=== PATIENT | male | born 1965 | race Caucasian/White ===

== ENCOUNTER 2019-12-13 10:44 | Outpatient (CLI) | payer MEDICAID, SELFPAY ==
[2019-12-13 11:16] LABS: Basophils # 0.1 10^3/uL (0.0-0.1); Basophils % 0.8 %; Eosinophils # 0.2 10^3/uL (0.0-0.8); Eosinophils % 1.5 %; Hematocrit 42.7 % (42.0-52.0); Hemoglobin 14.3 g/dL (11.7-16.6); Lymphocytes % 19.9 %; Mean Corpuscular HGB Conc 33.5 g/dL (30.0-36.0); Mean Corpuscular Volume 89.5 fL (80-94); Mean Platelet Volume 10.7 fL (7.4-10.4); Monocytes # 0.9 10^3/uL (0.2-0.9); Neutrophils # 6.7 10^3/uL (1.8-7.7); Neutrophils % 68.3 %; Nucleated Red Blood Cells % 0 %; Platelet Count 367 10^3/cmm (130-400); Red Blood Count 4.77 10^6/uL (4.1-5.3); Red Cell Distribution Width 12.6 % (12.1-15.1); White Blood Count 9.9 10^3/uL (4.0-10.0)
[2019-12-13 11:29] LABS: Albumin Level 4.2 g/dL (3.5-5.2); Blood Urea Nitrogen 25 mg/dL (6-20); Calcium 10.2 mg/dL (8.5-10.5); Carbon Dioxide 25 mmol/L (22-29); Chloride 95 mmol/L (98-107); Glucose 116 mg/dL (65-115); Sodium 132 mmol/L (136-145)
[2019-12-13 11:44] LABS: Urine Creatinine 130 mg/dL (39-259); Urine Protein Random 13 mg/dL
[2019-12-13 13:03] LABS: Calcium 10.4 mg/dL (8.5-10.5); Parathyroid Hormone 91.9 pg/mL (15-65)
== END 2019-12-13 10:45 | disposition home or self-care (01) ==
LOC: LAB 10:52
PROVIDERS: Family Provider Internal Medicine; PCP Physician Assistant; Visit Provider Internal Medicine Nephrology
DX: N18.4 Chronic kidney disease, stage 4 (severe) (principal)
CPT/HCPCS: 36415; 80069; 82310; 82570; 83970; 84156; 85025

== ENCOUNTER 2020-12-14 02:08 | Inpatient (IN) | payer MEDICARE, MEDICAID, SELFPAY ==
[2020-12-14] VITALS (20 sets, daily range): BP systolic 98–153; BP diastolic 61–104; PULSE 68–105; RESP 13–35; TEMP 32.6–37.2; O2SAT 94–100; BMI 23.5
--- NOTE | 2020-12-14 02:27 | XR_ITS ---
WS: [id number] PORTABLE CHEST HISTORY: weakness COMPARISON: 04/30/2020 Hyperexpanded lungs. Mild blunting of the LEFT costophrenic angle with pleural thickening. Similar to prior studies. Benign granuloma in the LEFT lower lung. No pleural effusion or pneumothorax. Cardiac size: Normal. Mediastinum/Aorta: Normal mediastinum. No osseous abnormality seen. XR/XR chest 1V portable [id number] IMPRESSION: 1. No pneumonia. 2. Stable blunting of the LEFT costophrenic angle.
--- NOTE | 2020-12-14 02:29 | ECG_ITS ---
[facility] Test Date: 2020-12-14 Pat Name: Srinivasan Arambula Department: Room: Gender: Male Customer Sales Specialist: : 1965 Requested By: Rosendo Olsen Order Number: [id number] Ethan MD: Jim Walter M.D. Measurements Intervals [place] Rate: 69 P: 54 UT: 153 QRS: 20 QRSD: 122 T: 45 QT: 488 QTc: 526 Interpretive Statements SINUS RHYTHM POSSIBLE LEFT ATRIAL ENLARGEMENT [-0.1mV P WAVE IN V1/V2] MODERATE INTRAVENTRICULAR CONDUCTION DELAY [110+ ms QRS DURATION] PROLONGED QT INTERVAL CRITICAL TEST RESULT Compared to ECG 01/28/2018 08:32:10 Intraventricular conduction delay now present Prolonged QT interval now present Left ventricular hypertrophy no longer present ST (T wave) deviation no longer present Possible ischemia no longer present Electronically Signed On 12-14-2020 16:06:52 IN SERVICE COORDINATOR by Jim Walter M.D. [email or web address] [email or web address] hospitalTeraFold Bi[employer] [email or web address]/OM/[id number]
[2020-12-14] MEDS: ondansetron 2 mg/ML SDV 2 mL 4 MG IVP (02:32)
[2020-12-14] MEDS: sodium chloride 0.9% 1,000 ML 999 ML IV (02:36)
[2020-12-14 03:09] LABS: Basophils # 0.1 10^3/uL (0.0-0.1); Basophils % 0.6 %; Eosinophils % 0.3 %; Hematocrit 43.9 % (42.0-52.0); Lymphocytes # 2.1 10^3/uL (0.8-4.8); Lymphocytes % 14.6 %; Mean Corpuscular HGB Conc 34.2 g/dL (30.0-36.0); Mean Corpuscular Hemoglobin 30.4 pg (28.0-34.0); Mean Platelet Volume 11.3 fL (7.4-10.4); Monocytes # 0.2 10^3/uL (0.2-0.9); Monocytes % 1.5 %; Neutrophils # 11.84 10^3/uL (1.8-7.7); Neutrophils % 82.4 %; Nucleated Red Blood Cells % 0 %; Platelet Count 363 10^3/cmm (130-400); Red Blood Count 4.93 10^6/uL (4.1-5.3); Red Cell Distribution Width 13.1 % (12.1-15.1); White Blood Count 14.4 10^3/uL (4.0-10.0)
[2020-12-14 03:29] LABS: Alanine Aminotransferase 16 U/L (0-41); Alcohol Level 81 mg/dL (0-10); Alkaline Phosphatase 114 IU/L (40-130); Anion Gap 29.8 (5-19); Aspartate Amino Transferase 20 U/L (0-40); Blood Urea Nitrogen 34 mg/dL (6-20); Carbon Dioxide 14 mmol/L (22-29); Chloride 92 mmol/L (98-107); Globulin 2.9 g/dL (1.3-4.6); Glomerular Filtration Rate 39.7 mL/min (90-130); Glucose 71 mg/dL (65-115); Lipase 55 U/L (13-60); Osmolality Calculated 282 mOsm/kg (285-295); Sodium 133 mmol/L (136-145); Total Bilirubin 0.3 mg/dL (0.15-1.2); Total Protein 6.9 g/dL (6.6-8.7)
[2020-12-14 03:30] LABS: Troponin(5th) Baseline 21 ng/L (0-15)
[2020-12-14 03:33] LABS: Potassium 2.8 mmol/L (3.5-5.1)
[2020-12-14 03:34] LABS: Lactate (Lactic Acid level) 7.1 mmol/L (0.5-2.2)
--- NOTE | 2020-12-14 03:36 | ED_ITS ---
HPI - General Adult General: Chief complaint: Nausea/Vomiting/Diarrhea Stated complaint: nausea Time Seen by Provider: 12/14/20 02:13 History of Present Illness: HPI narrative: The patient is a 55-year-old male with past medical history chronic kidney disease who comes to the ER via ambulance complaining of nausea and weakness. He says he does not know what to do anymore and his core temperature is 91 degrees. He also admits to drinking alcohol. He says he was not outside but he uses electricity for his seat so it is most likely a space heater. He is not very specific with his complaints or forthcoming with history. He says he has chronic kidney disease and may be high blood pressure. He is with a family member who says she does not know much about his medical problems either and she does not live with him Associated symptoms: Deny chest pain, confusion, dyspnea, headache(s), rash or palpitations Review of Systems General: Reports: 10 or more systems reviewed and unremarkable except in HPI and below Const: Denies: fatigue Eyes: Denies: change in vision, blurry vision or eye redness ENMT: Denies: throat pain, swelling of lips/tongue, ear or mastoid pain or nasal congestion Card: Denies: chest pain, palpitations, irregular heart rhythm, edema, dyspnea on exertion or orthopnea Resp: Denies: dyspnea, productive cough or non-productive cough GI: Denies: abdominal pain, diarrhea or GI cramping : Denies: flank pain, urinary frequency or urinary urgency Musc: Denies: neck pain, back pain, extremity pain, joint pain, joint redness, limited range of motion or muscle weakness Skin/Breast: Denies: rash, pruritus, erythema, skin pain or skin tenderness Neuro: Denies: headache(s), numbness in extremities, weakness in extremities, sensory changes, difficulty walking, dizziness, confusion or Slurred speech present Psych: Denies: anxiety or depression Endo: Denies: polyuria All/Imm: Denies: urticaria, throat swelling or tongue swelling PFSH ED PFSH: Medical History (Updated 12/14/20 @ 06:17 by Rosendo Olsen MD) Chronic kidney disease Coronary artery disease HTN (hypertension) LVH (left ventricular hypertrophy) Surgical History (Updated 09/27/20 @ 16:04 by Esha Shane MD) Hx of hand surgery Hx of pelvic surgery Family History Brother Hypertension Mother Hypertension Social History Smoking and tobacco status: current every day smoker Alcohol intake: current Alcohol intake frequency: other Physical Exam Const: COMMON NORMALS: no acute distress, average body habitus, patient oriented x3, no limitations, healthy appearing, alert and well nourished GENERAL APPEARANCE: cooperative, comfortable, well developed and disheveled ORIENTATION/CONSCIOUSNESS: Yes awake, Yes oriented to person, Yes oriented to place and Yes oriented to time OTHER: Skin cool to touch HENMT: COMMON NORMALS: normocephalic, external ears normal and Normal external nose present HEAD & SCALP: normal to inspection and normocephalic NOSE: Normal external nose present EXTERNAL EAR: Yes external ears normal MOUTH: Normal oral and palatal mucosa present THROAT: posterior oropharynx normal Eye: COMMON NORMALS: Equal, round and reactive pupils present and EOMs intact bilaterally GENERAL EYE: appearance normal, both eyes and all related structures PUPIL: Yes Equal, round and reactive pupils present Neck/C-Spine: COMMON NORMALS: full ROM, no lymphadenopathy, no meningeal signs and no JVD GENERAL: Yes normal visual inspection Lymph: LYMPHATIC: no lymphadenopathy noted Chest: COMMONS NORMALS: normal inspection of the chest and normal palpation of entire chest wall Resp: COMMON NORMALS: normal respiratory effort, No retractions, No use of accessory muscles, clear to auscultation bilaterally and percussion normal EFFORT & INSPECTION: Yes able to speak in complete sentences AUSCULTATION: clear to auscultation bilaterally PERCUSSION: percussion normal Cardio: COMMON NORMALS: no JVD, regular rate, regular rhythm, S1 normal heart sound present, S2 normal heart sound present and Peripheral pulses 2+ throughout RATE: regular rate RHYTHM: regular rhythm HEART SOUNDS: S1 normal heart sound present and S2 normal heart sound present PERIPHERAL PULSES: Peripheral pulses 2+ throughout GI: COMMON NORMALS: Normal to inspection, nondistended, normoactive bowel sounds present, Soft to palpation, non-tender and no masses INSPECTION: Yes normal to inspection PALPATION: Yes Soft to palpation : COMMON NORMALS: Yes no CVA tenderness BLADDER/KIDNEY EXAM: Yes no CVA tenderness Back/Pelvis: COMMON NORMALS: no CVA tenderness, thoracic and lumbar spine normal to inspection, no thoracic nor lumbar tenderness and thoraco-lumbar ROM normal Extremity: COMMON NORMALS: normal to inspection, full ROM, capillary refill normal, no joint enlargement and no pedal edema GENERAL: Yes normal exam except as noted Neuro: COMMON NORMALS: patient oriented x3, CN's II-XII intact bilaterally, moves all extremities, no focal motor deficits, no sensory deficits noted and gait normal SENSORIUM/ORIENTATION: Yes alert, Yes oriented to person, Yes oriented to place and Yes oriented to time MENINGEAL SIGNS: Yes no meningeal signs Psych: COMMON NORMALS: mental status grossly normal, Normal thought process present, cooperative, normal affect and speech normal ATTITUDE: Yes calm SPEECH: Yes normal speech THOUGHT PROCESS: Normal thought process present Skin: COMMON NORMALS: no rashes or lesions noted GENERAL SKIN EXAM: no r ashes or lesions noted Course Vital Signs: Vital signs: Vital Signs Temperature 93.1 F L 12/14/20 04:39 Pulse Rate 85 12/14/20 04:39 Respiratory Rate 20 H 12/14/20 04:39 Blood Pressure 118/66 12/14/20 04:39 Pulse Oximetry 95 12/14/20 04:39 MDM - General Adult MDM Narrative: Medical decision making narrative: The patient is a 55-year-old male with kidney disease who comes to the ER with a core body temperature of 90 degrees. Also he has lactic acid of 7.1 and potassium 2.8. He was placed on the bear hugger and given warm IV fluids with some improvement of these. Admit to to the ICU Lab Data: Labs: Lab Results 12/14/20 12/14/20 12/14/20 Range/Units 02:57 02:57 02:57 WBC 14.4 H (4.0-10.0) 10^3/ uL RBC 4.93 (4.1-5.3) 10^6/u L Hgb 15.0 (11.7-16.6) g/dL Hct 43.9 (42.0-52.0) % MCV 89.0 (80-94) fL MCH 30.4 (28.0-34.0) pg MCHC 34.2 (30.0-36.0) g/dL RDW 13.1 (12.1-15.1) % Plt Count 363 (130-400) 10^3/c mm MPV 11.3 H (7.4-10.4) fL Neut % (Auto) 82.4 % Lymph % (Auto) 14.6 % [place] % (Auto) 1.5 % Eos % (Auto) 0.3 % Baso % (Auto) 0.6 % Neut # (Auto) 11.84 H (1.8-7.7) 10^3/u L Lymph # (Auto) 2.1 (0.8-4.8) 10^3/u L [place] # (Auto) 0.2 (0.2-0.9) 10^3/u L Eos # (Auto) 0.0 (0.0-0.8) 10^3/u L Baso # (Auto) 0.1 (0.0-0.1) 10^3/u L Nucleated RBC % (a uto) 0 % Nucleated RBCs # 0.0 /100WBC Sodium 133 L (136-145) mmol/L Potassium 2.8 L* (3.5-5.1) mmol/L Chloride 92 L (98-107) mmol/L Carbon Dioxide 14 L (22-29) mmol/L Anion Gap 29.8 H (5-19) BUN 34 H (6-20) mg/dL Creatinine 1.8 H (0.7-1.2) mg/dL GFR Calculation 39.7 L (90-130) mL/min Glucose 71 (65-115) mg/dL Calculated Osmolal ity 282 L (285-295) mOsm/k g Lactate 7.1 H* (0.5-2.2) mmol/L Calcium 9.0 (8.5-10.5) mg/dL Total Bilirubin 0.3 (0.15-1.2) mg/dL AST 20 (0-40) U/L ALT 16 (0-41) U/L Alkaline Phosphata se 114 (40-130) IU/L Troponin T Baselin e (0-15) ng/L Troponin T 120 Min [place] (0-15) ng/L Delta Troponin T (0-10) ABS# Total Protein 6.9 (6.6-8.7) g/dL Albumin 4.0 (3.5-5.2) g/dL Globulin 2.9 (1.3-4.6) g/dL Lipase 55 (13-60) U/L Ethyl Alcohol 81 H (0-10) mg/dL 12/14/20 12/14/20 12/14/20 Range/Units 02:57 05:00 05:00 WBC (4.0-10.0) 10^3/ uL RBC (4.1-5.3) 10^6/u L Hgb (11.7-16.6) g/dL Hct (42.0-52.0) % MCV (80-94) fL MCH (28.0-34.0) pg MCHC (30.0-36.0) g/dL RDW (12.1-15.1) % Plt Count (130-400) 10^3/c mm MPV (7.4-10.4) fL Neut % (Auto) % Lymph % (Auto) % [place] % (Auto) % Eos % (Auto) % Baso % (Auto) % Neut # (Auto) (1.8-7.7) 10^3/u L Lymph # (Auto) (0.8-4.8) 10^3/u L [place] # (Auto) (0.2-0.9) 10^3/u L Eos # (Auto) (0.0-0.8) 10^3/u L Baso # (Auto) (0.0-0.1) 10^3/u L Nucleated RBC % (a uto) % Nucleated RBCs # /100WBC Sodium (136-145) mmol/L Potassium (3.5-5.1) mmol/L Chloride (98-107) mmol/L Carbon Dioxide (22-29) mmol/L Anion Gap (5-19) BUN (6-20) mg/dL Creatinine (0.7-1.2) mg/dL GFR Calculation (90-130) mL/min Glucose (65-115) mg/dL Calculated Osmolal ity (285-295) mOsm/k g Lactate 5.9 H* (0.5-2.2) mmol/L Calcium (8.5-10.5) mg/dL Total Bilirubin (0.15-1.2) mg/dL AST (0-40) U/L ALT (0-41) U/L Alkaline Phosphata se (40-130) IU/L Troponin T Baselin e 21 H (0-15) ng/L Troponin T 120 Min [place] 23.61 H (0-15) ng/L Delta Troponin T 2.61 (0-10) ABS# Total Protein (6.6-8.7) g/dL Albumin (3.5-5.2) g/dL Globulin (1.3-4.6) g/dL Lipase (13-60) U/L Ethyl Alcohol (0-10) mg/dL 12/14/20 Range/Units 05:00 WBC (4.0-10.0) 10^3/ uL RBC (4.1-5.3) 10^6/u L Hgb (11.7-16.6) g/dL Hct (42.0-52.0) % MCV (80-94) fL MCH (28.0-34.0) pg MCHC (30.0-36.0) g/dL RDW (12.1-15.1) % Plt Count (130-400) 10^3/c mm MPV (7.4-10.4) fL Neut % (Auto) % Lymph % (Auto) % [place] % (Auto) % Eos % (Auto) % Baso % (Auto) % Neut # (Auto) (1.8-7.7) 10^3/u L Lymph # (Auto) (0.8-4.8) 10^3/u L [place] # (Auto) (0.2-0.9) 10^3/u L Eos # (Auto) (0.0-0.8) 10^3/u L Baso # (Auto) (0.0-0.1) 10^3/u L Nucleated RBC % (a uto) % Nucleated RBCs # /100WBC Sodium (136-145) mmol/L Potassium 2.9 L (3.5-5.1) mmol/L Chloride (98-107) mmol/L Carbon Dioxide (22-29) mmol/L Anion Gap (5-19) BUN (6-20) mg/dL Creatinine (0.7-1.2) mg/dL GFR Calculation (90-130) mL/min Glucose (65-115) mg/dL Calculated Osmolal ity (285-295) mOsm/k g Lactate (0.5-2.2) mmol/L Calcium (8.5-10.5) mg/dL Total Bilirubin (0.15-1.2) mg/dL AST (0-40) U/L ALT (0-41) U/L Alkaline Phosphata se (40-130) IU/L Troponin T Baselin e (0-15) ng/L Troponin T 120 Min [place] (0-15) ng/L Delta Troponin T (0-10) ABS# Total Protein (6.6-8.7) g/dL Albumin (3.5-5.2) g/dL Globulin (1.3-4.6) g/dL Lipase (13-60) U/L Ethyl Alcohol (0-10) mg/dL Discharge Plan Discharge Patient Disposition: Admitted As Inpatient Clinical Impression: Hypothermia, Acute hypokalemia, Acidosis, lactic, Alcohol intoxication Condition: Stable Coding Level of Care Code ED Halal Butcher for g Fwd Exam Comprehensive
[2020-12-14] MEDS: lidocaine 1% 5 ML in potassium chloride premix 100 ML 25 ML IV (03:51)
[2020-12-14] MEDS: sodium chloride 0.9% 1,000 ML 200 ML IV ×2 (04:00→08:55)
--- NOTE | 2020-12-14 04:29 | ECG_ITS ---
[facility] Test Date: 2020-12-14 Pat Name: Srinivasan Arambula Department: Room: Gender: Male Soa Architect: : 1965 Requested By: Rosendo Olsen Order Number: [id number] Ethan MD: Jim Walter M.D. Measurements Intervals [place] Rate: 91 P: 54 NC: 152 QRS: 18 QRSD: 80 T: 36 QT: 410 QTc: 507 Interpretive Statements SINUS RHYTHM WITH FREQUENT VENTRICULAR PREMATURE COMPLEXES POSSIBLE LEFT ATRIAL ENLARGEMENT [-0.1mV P WAVE IN V1/V2] SEPTAL MYOCARDIAL INFARCTION , PROBABLY OLD [40+ ms Q WAVE IN V1/V2] Compared to ECG 12/14/2020 03:31:16 Ventricular premature complex(es) now present Myocardial infarct finding now present Intraventricular conduction delay no longer present Prolonged QT interval no longer present Electronically Signed On 12-14-2020 16:12:22 INSULATOR HELPER by Jim Walter M.D. [email or web address].[employer]/store/[id number]
[2020-12-14 05:31] LABS: Troponin 5 2HR 23.61 ng/L (0-15); Troponin 5 2HR Delta 2.61 ABS# (0-10)
[2020-12-14 05:48] LABS: Lactate (Lactic Acid level) 5.9 mmol/L (0.5-2.2); Potassium 2.9 mmol/L (3.5-5.1)
[2020-12-14 06:27] LABS: ABG PCO2 28.7 mmHg (35-45); Arterial Blood Gas Hematocrit 46.8 % (42-52); Base Excess ABG -10.8 mmol/L (-2.0-2.0); Blood Gas Allen Test Pos; Blood Gas Sample Site Radial, right; Blood Gas Sample Type Arterial; Carboxyhemoglobin 1.7 %THgb (0.4-20.1); HGB O2 Sat 94.7 % (95-100); Ionized Calcium Level - ABG 1.1 mmol/L (1.1-1.4); Methemoglobin 1.3 % (0.4-1.5); Oxygen Saturation ABG 97.6; PO2 ABG 99.2 mmHg (80.0-100.0); Total Hemoglobin 15.3 g/dL (14-18)
[2020-12-14 06:33] LABS: Amphetamines Screen Urine Positive (Negative); Barbiturates Screen Urine Negative (Negative); Benzodiazepines Screen Urine Negative (Negative); Cocaine Screen Urine Negative (Negative); Opiate Screen Urine Negative (Negative); PCP Screen Urine Negative (Negative); THC Screen Urine Positive (Negative)
[2020-12-14 06:42] LABS: Add Urine Microscopic? YES; Bilirubin Urine Neg (Negative); Blood Urine Neg (Negative); Glucose Urine UA Norm (Normal); Ketones Urine 1+ (Negative); Leukocyte Esterase Urine Negative (Negative); Nitrate Urine Negative (Negative); Protein Urine 1+ (Negative); Urine Appearance Clear (CLEAR); Urine Color Yellow (Yellow); Urobilinogen Urine Norm (Negative); pH Urine 5 (5-7)
[2020-12-14 06:43] LABS: Bacteria Urine TRACE /hpf; Mucus Urine TRACE /hpf; RBC Urine 0-4 /hpf (0-2); Squamous Epithelial Cell Urine RARE /hpf (0-5); WBC Urine 0-4 /hpf (0-5)
[2020-12-14 06:44] LABS: Add Urine Culture? No; Hyaline Casts Urine 0-4 /lpf
--- NOTE | 2020-12-14 07:09 | PC.NURSE ---
Received report assumed care. No changes noted. K(+) infusing with NS. Daughter at bedside. No complaints. Waiting on breakfast.
--- NOTE | 2020-12-14 08:19 | PC.PHAR ---
Addendum entered by Sue Torres 12/14/20 08:22: PT STATES HE IS OUT OF HIS SPIRONOLACTONE-PT BROUGHT IN MED BOTTLE DATED 08/14/2020-EXT MED HISTORY SHOWS LAST FILLED ON 11/19/20 Original Note: PT STATES HE TAKES CARE OF HIS OWN MEDICATIONS-PT STATES WHEN HE SAW LAST THAT HE CHANGED THE HYDRALAZINE TO 50MG TID-EXT MED HISTORY SHOWS LAST FILLED 100MG PO TID ON 11/04/20-
--- NOTE | 2020-12-14 08:29 | ECG_ITS ---
[facility] Test Date: 2020-12-14 Pat Name: Srinivasan Arambula Department: Room: Gender: Male Collar Separator: : 1965 Requested By: Rosendo Olsen Order Number: [id number] Ethan MD: Jim Walter M.D. Measurements Intervals [place] Rate: 92 P: 73 AL: 163 QRS: 26 QRSD: 85 T: 60 QT: 367 QTc: 455 Interpretive Statements SINUS RHYTHM POSSIBLE LEFT ATRIAL ENLARGEMENT [-0.1mV P WAVE IN V1/V2] Compared to ECG 12/14/2020 05:52:06 Ventricular premature complex(es) no longer present Myocardial infarct finding no longer present Electronically Signed On 12-14-2020 16:12:31 ASSOCIATE PROFESSOR OF LITERATURE by Jim Walter M.D. [email or web address]/[id number]
--- NOTE | 2020-12-14 08:40 | PC.NURSE ---
Repositioned , empty urinal 400cc, offered hot coffee.
[2020-12-14 09:00] LABS: Lactate (Lactic Acid level) 3.3 mmol/L (0.5-2.2)
--- NOTE | 2020-12-14 09:27 | PC.NURSE ---
Verbal order from Dr Pedersen drop rate NS from 200mls/hr to 100mls/hr. Orders Soft Cardiac diet. Temp is 98.7
--- NOTE | 2020-12-14 10:02 | USCV_ITS ---
Srinivasan Arambula Age: 55 Gender: M : 1965 Exam Date: 12/14/2020 15:42 Ordering Phys: Jake Short MD Technologist: Nadya Tan Exam Location: [place] Indication: elevated troponin BP: 138 / 91 HR: 80 Rhythm: Sinus Technical Quality: Adequate MEASUREMENTS (Male / Female) Normal Values 2D ECHO LV Diastolic Diameter PLAX 4.3 cm 4.2 - 5.9 / 3.9 - 5.3 cm LV Systolic Diameter PLAX 2.5 cm LV Chamber Size 3.6 cm IVS Diastolic Thickness 1.0 cm 0.6 - 1.0 / 0.6 - 0.9 cm IVS Systolic Thickness 1.2 cm LVPW Diastolic Thickness 1.2 cm 0.6 - 1.0 / 0.6 - 0.9 cm LVPW Systolic Thickness 2.1 cm RV Chamber Size 2.8 cm LVOT Diameter 2.0 cm LV Ejection Fraction 2D Teich 73.3 % LV Ejection Fraction MOD 2C 65.9 % LV Ejection Fraction 2C AL 65.3 % LA Diameter 3.0 cm LA Width 2.5 cm LA Height 3.4 cm RA Width 4.0 cm RA Height 3.4 cm Aorta at Sinotubular Diameter 2.9 cm M-MODE LV Diastolic Diameter MM 4.3 cm 4.2 - 5.9 / 3.9 - 5.3 cm LV Systolic Diameter MM 2.5 cm LV Ejection Fraction MM Teich 73.9 % IVS Diastolic Thickness MM 1.1 cm 0.6 - 1.0 / 0.6 - 0.9 cm IVS Systolic Thickness MM 1.3 cm LVPW Diastolic Thickness MM 1.3 cm 0.6 - 1.0 / 0.6 - 0.9 cm LVPW Systolic Thickness MM 1.6 cm RV Diastolic Diameter MM 2.1 cm Aortic Annulus Diameter 3.6 cm LA Ao Ratio MM 0.9 MV E Point Septal Separation 0.2 cm DOPPLER AV Peak Velocity 105.0 cm/s LVOT Peak Velocity 75.0 cm/s AV Area Cont Eq vti 2.1 cm squared AV Area Cont Eq pk 2.3 cm squared MV Area PHT 5.0 cm squared Mitral E to A Ratio 1.4 MV E' Velocity 51.5 cm/s Mitral E to MV E' Ratio 6.6 Mitral E to LV E' Lateral Ratio 6.6 Mitral E to LV E' Septal Ratio 6.7 TR Peak Velocity 110.6 cm/s TR Peak Gradient 4.9 mmHg TR Mean Velocity 83.6 cm/s TR Mean Gradient 3.1 mmHg TR Velocity Time Integral 28.4 cm TV Peak E Velocity 67.0 cm/s Right Atrial Pressure 3.0 mmHg Pulmonary Artery Systolic Pressu 7.9 mmHg PV Peak Velocity 43.0 cm/s RV Acceleration Time 0.1 s RV Ejection Time 0.3 s RV AcT/ET 0.4 FINDINGS Left Ventricle Normal left ventricular cavity size. Increased left ventricular wall thickness. Moderate concentric left ventricular hypertrophy. Normal left ventricular systolic function. Left ventricular ejection fraction is estimated at 70 %. No regional wall motion abnormalities. Normal diastolic function. Right Ventricle Normal right ventricular size and systolic function. Right ventricular systolic pressure 7.9 mmHg. Right Atrium Normal right atrial size. Right atrial pressure estimated at 3 mmHg. Left Atrium Left atrium not well visualized. Normal left atrial size. Mitral Valve Structurally normal mitral valve. No mitral valve stenosis. Trace mitral valve regurgitation. Aortic Valve Aortic valve not well visualized. No aortic valve stenosis. No aortic valve regurgitation. Tricuspid Valve Tricuspid valve not well visualized. Trace tricuspid valve regurgitation. Pulmonic Valve Pulmonic valve not well visualized. Pericardium No pericardial effusion. Aorta Normal-sized inferior vena cava. CONCLUSIONS 1. Normal left ventricular cavity size and systolic function. Moderate concentric left ventricular hypertrophy. Left ventricular ejection fraction is estimated at 70 %. No regional wall motion abnormalities. Normal diastolic function. 2. Normal right ventricular size and systolic function. 3. Normal pulmonary artery pressure. 4. Compared to previous echocardiogram dated 01/27/2018, there has been no significant change. Esha Shane MD (Electronically Signed) Final Date: 15 December 2020 16:48 S
[2020-12-14 10:08] LABS: Anion Gap 25.5 (5-19); Blood Urea Nitrogen 35 mg/dL (6-20); Calcium 8.7 mg/dL (8.5-10.5); Carbon Dioxide 16 mmol/L (22-29); Chloride 97 mmol/L (98-107); Glucose 52 mg/dL (65-115); Osmolality Calculated 285 mOsm/kg (285-295); Potassium 3.5 mmol/L (3.5-5.1); Sodium 135 mmol/L (136-145)
[2020-12-14] MEDS: potassium chloride ER 20 mEq Tablet 40 MEQ PO (10:40)
[2020-12-14] MEDS: carvedilol 12.5 mg Tablet PO (10:40)
[2020-12-14 10:48] LABS: Magnesium 1.9 mg/dL (1.7-2.3); Thyroid Stimulating Hormone 0.69 uIU/mL (0.27-4.20)
[2020-12-14] MEDS: enoxaparin 40 mg/0.4 mL Syringe SUBCUT (12:04)
--- NOTE | 2020-12-14 14:35 | PM.HP ---
Providers/Chief Complaint Admitting Physician: Gertrudis Park MD Primary Care Provider: Inocencia Stoll Chief Complaint: nausea History of Present Illness Srinivasan Arambula is a 55 year old male presents from home. He was found to be very hypothermic on arrival to the emergency department with a temperature of 90 ?F. Patient reports that around 10 or 1030 last night he remembers laying down on the floor because he was very very weak and warm. He denied any chest discomfort. He reports no significant nausea, shortness of breath. He denies any fever, history of Covid, or exposure to Covid. He has had no diarrhea. There is been no blood in his stool or black or tarry stools. He did drink some alcohol yesterday. Perhaps a pint or half a pint he is not sure, of [place]. Review of Systems General: Reports: 10 or more systems reviewed and unremarkable except in HPI and below Const: Denies: fever(s) or chills Eyes: Denies: change in vision ENMT: Denies: throat pain Card: Denies: chest pain Resp: Denies: dyspnea GI: Denies: abdominal pain : Reports: urinary dribbling; Denies: flank pain Musc: Denies: neck pain Skin/Breast: Denies: rash Neuro: Reports: headache(s) Psych: Denies: anxiety Endo: Denies: polyuria Nicholas/Lymph: Denies: easy bruising All/Imm: Denies: urticaria Medications/Allergies Home Medications Medication Instructions Recorded Confirmed Last Taken Type clonidine HCl 0.3 mg tablet 0.3 mg PO TID@08,14,20 09/27/20 12/14/20 12/13/20 History escitalopram oxalate 10 mg tablet 15 mg PO DAILY@20 tab 09/27/20 12/14/20 12/13/20 History hydralazine 100 mg tablet See Rx Instructions .ROUTE 09/27/20 12/14/20 12/13/20 History .COMPLEX tab 50 mg omeprazole 20 mg tablet,delayed 20 mg PO DAILY@08 09/27/20 12/14/20 12/13/20 History release tamsulosin 0.4 mg capsule 0.8 mg PO BEDTIME 09/27/20 12/14/20 12/13/20 History acetaminophen [Tylenol Extra 1,000 mg PO PRN 12/14/20 12/14/20 Unknown History Strength] amlodipine 10 mg PO DAILY@08 12/14/20 12/14/20 12/13/20 History carvedilol 25 mg PO BID@,12/14/20 12/14/20 12/13/20 History chlorthalidone 50 mg PO DAILY@08 12/14/20 12/14/20 12/13/20 History isosorbide mononitrate 120 mg PO DAILY@12/14/20 12/14/20 12/13/20 History loratadine 10 mg PO DAILY@12/14/20 12/14/20 12/13/20 History nitroglycerin [Nitrostat] 0.4 mg SUBLINGUAL Q5M PRN 12/14/20 12/14/20 Unknown History spironolactone 50 mg PO BID 12/14/20 12/14/20 Unknown History Allergies Allergy/AdvReac Type Severity Reaction Status Date / Time No Known Allergies Allergy Verified 12/14/20 08:18 PFSH Acute PFSH: Medical History (Updated 12/14/20 @ 14:48 by Jake Short MD) Chronic kidney disease COPD (chronic obstructive pulmonary disease) Coronary artery disease HTN (hypertension) LVH (left ventricular hypertrophy) Tobacco abuse Surgical History Hx of hand surgery Hx of pelvic surgery Family History Brother Hypertension Mother Hypertension Social History (Updated 12/14/20 @ 14:37 by Jake Short MD) Smoking and tobacco status: current every day smoker Alcohol intake: current Alcohol intake frequency: other Substance/Drug Use: current Substance/Drug use type: Marijuana Vitals/I&O/Wt Last Vital Signs Temp 98.1 F 12/14/20 09:00 Pulse 95 12/14/20 12:11 Resp 23 H 12/14/20 12:11 BP 140/97 12/14/20 12:11 Pulse Ox 96 12/14/20 12:11 12/13/20 12/14/20 12/14/20 22:59 06:59 14:59 Intake Total 1000 / 1000 1000 / 1000 Balance 1000 / 1000 1000 / 1000 Weight last 48 hrs Weight 68.039 kg Physical Exam Narrative: EXAM NARRATIVE: General exam is a white male, currently no apparent distress HEENT: Pupils equally round. Oropharynx clear. Neck is supple no lymphadenopathy or thyromegaly Cardiovascular regular rate and rhythm without murmur. No S3 or S4 Lungs slightly coarse with some wheezes at the bases bilaterally. Abdomen is soft nontender with positive bowel sounds. No obvious organomegaly was deferred Extremities no cyanosis clubbing or edema, cap refill brisk Skin no rash Neuro no focal deficits. Data : 12/14/20 02:57 12/14/20 08:38 Other data: Initial ABG demonstrates a pH of 7.3, PCO2 of 29, PO2 99 on room air. Lactate 3.3 Calcium 8.7 Troponin XX 1 with repeat of 23 and 6-hour 32 UA with 0-4 reds and 0-4 whites Urine drug screen positive for amphetamines, marijuana, alcohol level of 81 Chest x-ray with slight blunting left costophrenic angle Last EKG demonstrates a sinus rhythm, intraventricular conduction delay, QTC of 526. Following this he has sinus rhythm, normal axis, QTC of 455 on repeat after rewarming and no intraventricular conduction delay. A&P Assessment and plan (1) Hypothermia: Rewarming with bear hugger in the emergency department Overall improving and prolonged QTC has gone away on EKG Status: Acute (2) Acute hypokalemia: Supplementation occurring in the emergency department Magnesium level checked and normal Status: Acute (3) Elevated troponin: Suspect this is secondary to renal dysfunction, hypothermia. Patient denies any chest discomfort. Amphetamine may play a role as well. Troponin checked and normal Check echocardiogram Status: Acute (4) Alcohol intoxication: Monitor closely for any withdrawal Thiamine 100 mg daily Status: Acute (5) HTN (hypertension): Restart patient's carvedilol Restart other medication as tolerated Status: Acute Qualifiers: Hypertension type: essential hypertension Qualified Code(s): I10 - Essential (primary) hypertension (6) Chronic kidney disease: Close follow-up of renal function Status: Acute Qualifiers: Chronic kidney disease stage: stage 3 (moderate) (7) Coronary artery disease: No angiographically proven coronary disease Status: Acute (8) Tobacco abuse: Encourage cessation Status: Acute Additional A&P Information Metabolic acidosis. Likely secondary to hypothermia as well as alcohol. Anion gap on admission 30 and currently improved to 25. Repeat BMP in 6 hours. Full code Lovenox for DVT prophylaxis Attestations Medical Necessity Statement*: At this point 2 midnight stay is anticipated secondary to profound hypothermia, metabolic acidosis, hypokalemia, elevated troponin. Time Spent in Patient Care: Greater than 35 minutes Coding Level of Care Code Acute Supervisor Instrument Repair for Chg Fwd Diagnoses Hypothermia T68.XXXA Acute hypokalemia E87.6 Elevated troponin R77.8 Alcohol intoxication F10.929 HTN (hypertension) I10 Hypertension type: essential hypertension Chronic kidney disease N18.9 Chronic kidney disease stage: stage 3 (moderate) Coronary artery disease I25.10 Tobacco abuse Z72.0
[2020-12-14] MEDS: sodium chloride 0.9% 1,000 ML 75 ML IV (18:07)
[2020-12-14] MEDS: escitalopram 10 mg Tablet 15 MG PO (19:22)
[2020-12-14] MEDS: carvedilol 25 mg Tablet PO (19:23)
[2020-12-14] MEDS: tamsulosin 0.4 mg Capsule 0.8 MG PO (20:24)
[2020-12-14 21:08] LABS: Anion Gap 14.3 (5-19); Blood Urea Nitrogen 33 mg/dL (6-20); Calcium 8.4 mg/dL (8.5-10.5); Carbon Dioxide 24 mmol/L (22-29); Chloride 102 mmol/L (98-107); Glomerular Filtration Rate 45.4 mL/min (90-130); Glucose 87 mg/dL (65-115); Osmolality Calculated 291 mOsm/kg (285-295); Potassium 3.3 mmol/L (3.5-5.1); Sodium 137 mmol/L (136-145)
[2020-12-15] VITALS (9 sets, daily range): BP systolic 128–154; BP diastolic 79–106; PULSE 66–91; RESP 13–18; TEMP 36.9–37.1; O2SAT 94–97
[2020-12-15] MEDS: sodium chloride 0.9% 1,000 ML 75 ML IV (00:30)
--- NOTE | 2020-12-15 04:26 | PC.NURSE ---
Report given to M/S nurse MANNY Finn. Patient transferred via wheelchair with all belongings and home meds from [facility]
[2020-12-15 07:00] LABS: Basophils # 0.1 10^3/uL (0.0-0.1); Basophils % 0.5 %; Eosinophils # 0.1 10^3/uL (0.0-0.8); Eosinophils % 0.9 %; Hematocrit 41.4 % (42.0-52.0); Hemoglobin 14.3 g/dL (11.7-16.6); Lymphocytes # 2.9 10^3/uL (0.8-4.8); Lymphocytes % 26.6 %; Mean Corpuscular HGB Conc 34.5 g/dL (30.0-36.0); Mean Corpuscular Hemoglobin 30.6 pg (28.0-34.0); Mean Corpuscular Volume 88.5 fL (80-94); Mean Platelet Volume 12.2 fL (7.4-10.4); Monocytes % 9.2 %; Neutrophils # 6.76 10^3/uL (1.8-7.7); Neutrophils % 62.5 %; Nucleated Red Blood Cells % 0 %; Platelet Count 345 10^3/cmm (130-400); Red Blood Count 4.68 10^6/uL (4.1-5.3); Red Cell Distribution Width 13.7 % (12.1-15.1); White Blood Count 10.8 10^3/uL (4.0-10.0)
[2020-12-15 07:19] LABS: Alanine Aminotransferase 15 U/L (0-41); Albumin Level 3.8 g/dL (3.5-5.2); Alkaline Phosphatase 91 IU/L (40-130); Anion Gap 16.2 (5-19); Aspartate Amino Transferase 19 U/L (0-40); Blood Urea Nitrogen 25 mg/dL (6-20); Calcium 8.8 mg/dL (8.5-10.5); Carbon Dioxide 25 mmol/L (22-29); Chloride 103 mmol/L (98-107); Creatinine Clr Calc Pharmacy 66.0706; Globulin 3.1 g/dL (1.3-4.6); Glomerular Filtration Rate 57.7 mL/min (90-130); Glucose 78 mg/dL (65-115); Magnesium 2.1 mg/dL (1.7-2.3); Osmolality Calculated 295 mOsm/kg (285-295); Potassium 3.2 mmol/L (3.5-5.1); Sodium 141 mmol/L (136-145); Total Bilirubin 0.4 mg/dL (0.15-1.2); Total Protein 6.9 g/dL (6.6-8.7)
--- NOTE | 2020-12-15 08:55 | PM.DCS ---
Discharge Providers Date of Admission: 12/14/20 10:10 Date of Discharge: December 15, 2020 Attending Provider at Admission: Gertrudis Park MD Attending Provider at Discharge: Jake Short MD Primary Care Provider: Inocencia Stoll Diagnoses at Discharge Discharge Diagnosis (1) Hypothermia: Status: Acute (2) Acute hypokalemia: Status: Acute (3) Elevated troponin: Status: Acute (4) Alcohol intoxication: Status: Acute (5) HTN (hypertension): Status: Acute Qualifiers: Hypertension type: essential hypertension Qualified Code(s): I10 - Essential (primary) hypertension (6) Chronic kidney disease: Status: Acute Qualifiers: Chronic kidney disease stage: stage 3 (moderate) (7) Coronary artery disease: Status: Acute (8) Tobacco abuse: Status: Acute Reason for Visit Reason for Visit: nausea Hospital Course Hospital Course Srinivasan is a 55-year-old white male who presented to the emergency department markedly hypothermic. Urine drug screen was positive for amphetamines as well as alcohol. He reports he had 1/5 or perhaps a little less of [place] the night prior to presentation. He remembers being weak, lowered himself to the floor and being too weak to get up. He denies any chest pain, shortness of breath. On arrival to the emergency department he was actively warmed. He was found to have metabolic acidosis, and alcohol was measurable in his blood. Urine drug screen results as above. He was rehydrated, blood pressure medicine held with the exception of carvedilol. He was initially admitted as a full admission secondary to significant hypothermia, metabolic acidosis, chronic kidney disease with concern of acute kidney injury, abnormal EKG with prolonged QTC on admission. He improved greater than expected and was able to transfer out of the ICU later on that day. No arrhythmias were noted and QTc corrected to normal. The following day he was wanting to go home, and felt normal. He will discharge with instructions not to smoke, not to drink, not to do any THC or amphetamines. He will follow-up with his primary care provider 3 to 5 days and have a CBC and BMP on follow-up. Magnesium level was checked and normal. Echocardiogram was checked and preliminary with no great concerns but final reading pending at time of discharge. This can be followed up as an outpatient. Troponin did elevate, but with no evidence of ischemia on EKG, symptoms of chest discomfort or shortness of breath, and history of presentation with acidosis, renal injury, alcohol intake methamphetamine use it was thought it was elevated secondary to this. 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 Chlorthalidone will be held on discharge in case some of his weakness was secondary to dehydration associated with substance use. He will continue his Aldactone. Physical Exam Narrative: EXAM NARRATIVE: General exam is no apparent distress Cardiovascular regular rate and rhythm without murmur Lungs clear Abdomen is soft nontender with positive bowel sounds Extremities no cyanosis clubbing or edema Discharge Data Data Completed and Pending: Completed Studies During Hospitalization Category Date Time Status XR chest 1V barrett ble [id number] Urgent Exams 12/14/20 02:27 Completed Pending at discharge Category Date Time Status CV echo complete* [id number] Routine Ultrasound 12/14/20 10:02 Taken Labs from last 24 hours 12/15/20 12/15/20 12/14/20 05:35 05:35 20:32 WBC 10.8 H RBC 4.68 Hgb 14.3 Hct 41.4 L MCV 88.5 MCH 30.6 MCHC 34.5 RDW 13.7 Plt Count 345 MPV 12.2 H Neut % (Auto) 62.5 Lymph % (Auto) 26.6 [place] % (Auto) 9.2 Eos % (Auto) 0.9 Baso % (Auto) 0.5 Neut # (Auto) 6.76 Lymph # (Auto) 2.9 [place] # (Auto) 1.0 H Eos # (Auto) 0.1 Baso # (Auto) 0.1 Nucleated RBC % (a uto) 0 Nucleated RBCs # 0.0 Sodium 141 137 Potassium 3.2 L 3.3 L Chloride 103 102 Carbon Dioxide 25 24 Anion Gap 16.2 14.3 BUN 25 H 33 H Creatinine 1.3 H 1.6 H GFR Calculation 57.7 L 45.4 L Glucose 78 87 Calculated Osmolal ity 295 291 Lactate Calcium 8.8 8.4 L Magnesium 2.1 Total Bilirubin 0.4 AST 19 ALT 15 Alkaline Phosphata se 91 Troponin T Hi Sens 6Hr Troponin T Hi Sens 6Hr Delta Total Protein 6.9 Albumin 3.8 Globulin 3.1 TSH 12/14/20 12/14/20 12/14/20 19:13 08:38 08:38 WBC RBC Hgb Hct MCV MCH MCHC RDW Plt Count MPV Neut % (Auto) Lymph % (Auto) [place] % (Auto) Eos % (Auto) Baso % (Auto) Neut # (Auto) Lymph # (Auto) [place] # (Auto) Eos # (Auto) Baso # (Auto) Nucleated RBC % (a uto) Nucleated RBCs # Sodium Cancelled 135 L Potassium Cancelled 3.5 Chloride Cancelled 97 L Carbon Dioxide Cancelled 16 L Anion Gap Cancelled 25.5 H BUN Cancelled 35 H Creatinine Cancelled 1.5 H GFR Calculation Cancelled 49.0 L Glucose Cancelled 52 L Calculated Osmolal ity Cancelled 285 Lactate Calcium Cancelled 8.7 Magnesium 1.9 Total Bilirubin AST ALT Alkaline Phosphata se Troponin T Hi Sens 6Hr Troponin T Hi Sens 6Hr Delta Total Protein Albumin Globulin TSH 0.69 12/14/20 12/14/20 08:38 08:38 WBC RBC Hgb Hct MCV MCH MCHC RDW Plt Count MPV Neut % (Auto) Lymph % (Auto) [place] % (Auto) Eos % (Auto) Baso % (Auto) Neut # (Auto) Lymph # (Auto) [place] # (Auto) Eos # (Auto) Baso # (Auto) Nucleated RBC % (a uto) Nucleated RBCs # Sodium Potassium Chloride Carbon Dioxide Anion Gap BUN Creatinine GFR Calculation Glucose Calculated Osmolal ity Lactate 3.3 H Calcium Magnesium Total Bilirubin AST ALT Alkaline Phosphata se Troponin T Hi Sens 6Hr 32.00 H Troponin T Hi Sens 6Hr Delta 11.00 Total Protein Albumin Globulin TSH Vitals: Last Vital Signs Temp 98.4 F 12/15/20 07:29 Pulse 91 12/15/20 07:29 Resp 17 12/15/20 07:29 BP 138/92 12/15/20 07:29 Pulse Ox 95 12/15/20 07:29 Discharge Plan Discharge Patient Disposition: Home Condition: Stable Prescriptions: Continued omeprazole 20 mg tablet,delayed release (DR/EC) 20 mg PO DAILY@08 RF: 0 hydralazine 100 mg tablet See Rx Instructions .ROUTE .COMPLEX RF: 0 clonidine HCl 0.3 mg tablet 0.3 mg PO TID@08,14,20 RF: 0 tamsulosin 0.4 mg capsule 0.8 mg PO BEDTIME RF: 0 escitalopram oxalate 10 mg tablet 15 mg PO DAILY@20 RF: 0 Tylenol Extra Strength 500 mg Tablet 1,000 mg PO PRN RF: 0 Nitrostat 0.4 mg Tablet, Sublingual 0.4 mg SUBLINGUAL Q5M PRN (Reason: Chest Pain) RF: 0 loratadine 10 mg Tablet 10 mg PO DAILY@08 RF: 0 carvedilol 25 mg tablet 25 mg PO BID@08,20 RF: 0 isosorbide mononitrate 120 mg tablet extended release 24 hr 120 mg PO DAILY@08 RF: 0 amlodipine 10 mg tablet 10 mg PO DAILY@08 RF: 0 spironolactone 50 mg tablet 50 mg PO BID RF: 0 Discontinued chlorthalidone 25 mg tablet 50 mg PO DAILY@08 RF: 0 Discharge Orders: Discharge Order (Routine); Ordered 12/15/20 Ordered By: Jake Short Referrals: Inocencia Stoll PA [Primary Care Provider] - 4-7 days (CBC and BMP on follow-up) Discharge Diet: Cardiac Discharge Activity: Increase activity as tolerated Activity Restrictions/Additional Instructions: Of smoking. Avoid all alcohol. Stop your chlorthalidone. Keep follow-up with your primary care provider 3 to 5 days. CBC and BMP on follow-up. Discharge Attestations Time Spent in Discharge Care*: greater than 30 min Quality Metrics Clinical Quality Measures During this hospital stay, did patient experience: None Coding Level of Care Code Acute National Accounts Recruiter for Dori Powers Diagnoses Hypothermia T68.XXXA Acute hypokalemia E87.6 Elevated troponin R77.8 Alcohol intoxication F10.929 HTN (hypertension) I10 Hypertension type: essential hypertension Chronic kidney disease N18.9 Chronic kidney disease stage: stage 3 (moderate) Coronary artery disease I25.10 Tobacco abuse Z72.0
[2020-12-15] MEDS: pantoprazole DR 40 mg Tablet PO (10:18)
[2020-12-15] MEDS: hyDRALAzine 50 mg Tablet PO (10:18)
[2020-12-15] MEDS: amlodipine 10 mg Tablet PO (10:18)
[2020-12-15] MEDS: carvedilol 25 mg Tablet PO (10:18)
[2020-12-15] MEDS: thiamine 100 mg Tablet PO (10:18)
[2020-12-15] MEDS: cloNIDine 0.1 mg Tablet 0.3 MG PO (10:18)
[2020-12-15] MEDS: spironolactone 25 mg Tablet 50 MG PO (10:18)
[2020-12-15] MEDS: isosorbide mononitrate ER 60 mg Tablet 120 MG PO (10:18)
[2020-12-15] MEDS: potassium chloride ER 20 mEq Tablet 40 MEQ PO (10:30)
--- NOTE | 2020-12-15 11:47 | PC.CHAP ---
Pastoral Care Encounter/Spiritual Assessment Type of Contact [] Declined rn recruitment visit [] Patient/Family/Request visit [] Outpatient visit [] Follow-up visit [] Physician referral [] Code/Alert [XX] Routine visit [] Staff referral [] Actively dying [] Patient sleeping [] Family support [] [] Out of room [] Palliative care [] [] Receiving care in room [] Pre-surgical visit [] Trauma [] Long length of stay [] ICU visit [] Other: Relational/Emotional Strength [XX] Patient feels connected with others/family/visitors/staff [] Distress [] Loneliness/isolation [] Abandonment Spirituality of Patient [] Person of Rose [] Attends Baptism of their Rose [] Believes in Prayer [] Reads Bible or Gnosticism materials [XX] There are Spiritual issues to be addressed Valet Manager Interventions [] Prayer [XX] Active listening [XX] Non-anxious presence [] Spiritual/emotional support [] Crisis/trauma care [] Spiritual counseling [] Bereavement support [] Provided bereavement packet [] Provided Bible/devotional materials [] Provided toy/stuffed animal, coloring book to patient or family member [] Provided Communion [] Anointing/[place] [] Salvation [XX] Completed spiritual assessment [] Other: Impact on Illness or Injury [] Angry [] Fearful [] Anxious [] Often cries [] Exhaustion [] Unable to work [] Unable to attend mu-ism [] Unable to walk/stand [] Unable to read [] Unable to drive [] Unable to eat/drink [] Unable to sleep [] Unable to be with family [] Patient intubated [] Other: Summary: Pt open to pastoral visit but declined prayer. He has some family support. Pt believes that he is going home today and awaiting a relative to pick him up. Time spent with patient: 10 mins
== END 2020-12-15 13:52 | disposition home or self-care (01) | DRG 923 ==
LOC: ER 06:17 → ER IP 10:19 → ICU 15:34 → MEDSURG 12-15 04:21
PROVIDERS: Family Medicine; Admitting Provider Hospitalist; Emergency Provider Family Medicine; PCP Physician Assistant; Visit Provider Internal Medicine
DX: T68.XXXA Hypothermia, initial encounter (principal); E87.2 Acidosis; N17.9 Acute kidney failure, unspecified; X31.XXXA Exposure to excessive natural cold, initial encounter; N18.30 Chronic kidney disease, stage 3 unspecified; I12.9 Hypertensive chronic kidney disease with stage 1 through stage 4 chronic kidney disease, or unspecified chronic kidney disease; J44.9 Chronic obstructive pulmonary disease, unspecified; I25.10 Atherosclerotic heart disease of native coronary artery without angina pectoris; F17.210 Nicotine dependence, cigarettes, uncomplicated; I51.7 Cardiomegaly; F12.90 Cannabis use, unspecified, uncomplicated; F15.90 Other stimulant use, unspecified, uncomplicated; F10.929 Alcohol use, unspecified with intoxication, unspecified; E87.6 Hypokalemia
CPT/HCPCS: 36415; 36600; 71045; 80048; 80051; 80053; 80306; 80307; 81001; 82330; 82805; 83605; 83690; 83735; 84132; 84443; 84484; 85025; 93005; 93306; 96365; 96366; 96367; 96372; 96375; 99285; J1650; J2405; J3480; J7030

== ENCOUNTER 2022-01-06 13:11 | Outpatient (CLI) | payer MEDICARE, MEDICAID, SELFPAY ==
--- NOTE | 2022-01-06 13:18 | CT_ITS ---
WS: [id number] LDCT LUNG CANCER SCREENING TECHNIQUE: Noncontrast CT of the chest with coronal and sagittal reformatted images. CLINICAL INFORMATION: NICOTINE DEPENDENCE COMPARISON: CT chest DLP: 75.11 mGy.cm DIvol: Mean CTDIvol: 1.60 (mGy) All CT scans at [facility] use at least one of these dose optimization techniques: automat ed exposure control; mA and/or kV adjustment per patient size (includes targeted exams where dose is matched to clinical indication); or iterative reconstruction. FINDINGS: Two Tiny noncalcified nodules LEFT lower lobe measuring 2-3 mm. Subsegmental atelectasis in the lung bases. Normal caliber thoracic aorta. Calcified LEFT anterior mediastinal lymph nodes. No axillary ly mphadenopathy. Partially visualized LEFT adrenal lesion likely adenoma measuring 16 mm. Normal GE junction. CT/CT lung screening [id number] IMPRESSION: LUNG-RADS: 2-Benign Appearance or Behavior FOLLOW UP: 12 Month: Continue annual screening with LDCT
== END 2022-01-06 13:12 | disposition home or self-care (01) ==
LOC: RAD 13:17
PROVIDERS: PCP Physician Assistant; Visit Provider Physician Assistant
DX: Z12.2 Encounter for screening for malignant neoplasm of respiratory organs (principal); F17.210 Nicotine dependence, cigarettes, uncomplicated
CPT/HCPCS: 71271

== ENCOUNTER → 2022-08-06 10:58 | Outpatient (BNVA) | payer MEDICARE, MEDICAID, SELFPAY | PROVIDERS: PCP Physician Assistant; Visit Provider Internal Medicine Cardiovascular Disease | DX: I12.9 Hypertensive chronic kidney disease with stage 1 through stage 4 chronic kidney disease, or unspecified chronic kidney disease (principal); F17.200 Nicotine dependence, unspecified, uncomplicated; N18.30 Chronic kidney disease, stage 3 unspecified; I51.7 Cardiomegaly; I25.10 Atherosclerotic heart disease of native coronary artery without angina pectoris | CPT/HCPCS: 99214 ==

== ENCOUNTER 2023-05-29 13:06 | Outpatient (CLI) | payer MEDICARE, MEDICAID, SELFPAY ==
--- NOTE | 2023-05-29 13:21 | CT_ITS ---
WS: [id number] LDCT LUNG CANCER SCREENING HISTORY: NICOTINE DEPENDENCE, CIGARETTES TECHNIQUE: Axial imaging performed from the apices to 1 cm below the costophrenic angles. Coronal and sagittal reformats are submitted with axial MIP series. All CT scans at [facility] use at least one of these dose optimization techniques: automated exposure control; mA and/or kV adjustment per patient size (includes targeted exams where dose is matched to clinical indication); or iterativ e reconstruction. DLP: 56.22 mGy.cm DIvol: Mean CTDIvol: 1.10 (mGy) COMPARISON: 01/06/2022 Diagnostic quality: Satisfactory Lungs: 2 noncalcified, less than 3 mm nodules in the periphery LEFT lower lobe are stable. No new mas s or nodule. Benign granuloma lingula. No endobronchial lesions. Mild hyperexpansion. Heart: Mild cardiomegaly.. Other findings: Fat-containing RIGHT adrenal mass. Mass is incompletely visualized but Hounsfield uni ts are negative. Mass measures 2.0 x 1.3 cm additional similar mass LEFT adrenal gland measures 2.[address]/CT lung screening [id number] IMPRESSION: LUNG-RADS: 2-Benign Appearance or Behavior FOLLOW UP: 12 Month: Continue annual screening with LDCT OTHER FINDINGS (S MODIFIER): None.
== END 2023-05-29 13:07 | disposition home or self-care (01) ==
PROVIDERS: PCP Physician Assistant; Visit Provider Physician Assistant
DX: Z12.2 Encounter for screening for malignant neoplasm of respiratory organs (principal); F17.210 Nicotine dependence, cigarettes, uncomplicated
CPT/HCPCS: 71271

== ENCOUNTER 2023-09-29 11:57 | Emergency (ER) | payer MEDICARE, MEDICAID, SELFPAY ==
[2023-09-29 11:58] VITALS: BP 156/111; PULSE 62; RESP 16; TEMP 36.6; O2SAT 98; BMI 25.0
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
--- NOTE | 2023-09-29 12:08 | ECG_ITS ---
[facility] Test Date: 2023-09-29 Pat Name: Srinivasan Arambula Department: Room: Gender: Male [employer] Paraprofessional: : 1965 Requested By: Nicole Banks Order Number: [id number] Ethan MD: Esha Shane M.D. Measurements Intervals [place] Rate: 58 P: 23 KS: 154 QRS: 29 QRSD: 98 T: 48 QT: 434 QTc: 428 Interpretive Statements SINUS BRADYCARDIA Compared to ECG 12/14/2020 08:31:58 Sinus rhythm no longer present Electronically Signed On 09-29-2023 13:40:45 DIRECTOR OF [employer]ETING by Esha Shane M.D. [id number]
[2023-09-29] MEDS: sodium chloride 0.9% 500 ML IV (12:09)
[2023-09-29 12:26] LABS: Basophils # 0.1 10^3/uL (0.0-0.1); Basophils % 0.6 %; Eosinophils # 0.3 10^3/uL (0.0-0.8); Eosinophils % 1.7 %; Hematocrit 31.1 % (37-53); Lymphocytes # 1.8 10^3/uL (0.8-4.8); Lymphocytes % 12.3 %; Mean Corpuscular HGB Conc 32.5 g/dL (30-55); Mean Corpuscular Hemoglobin 31.1 pg (27-33); Mean Corpuscular Volume 95.7 fl (82-101); Mean Platelet Volume 10.9 fL (7.4-10.4); Monocytes # 0.7 10^3/uL (0.2-0.9); Monocytes % 4.7 %; Neutrophils # 11.55 10^3/uL (1.8-7.7); Neutrophils % 80.2 %; Nucleated Red Blood Cells % 0 %; Platelet Count 443 10^3/cmm (157-399); Red Blood Count 3.25 10^6/uL (3.85-5.65)
[2023-09-29 12:29] VITALS: BP 156/111; PULSE 58; O2SAT 96
--- NOTE | 2023-09-29 12:39 | XRR_ITS ---
PROCEDURE INFORMATION: Exam: XR Chest Exam date and time: 09/29/2023 12:47 PM Age: 58 years old Clinical indication: Other: Syncope TECHNIQUE: Imaging protocol: Radiologic exam of the chest. Views: 1 view. COMPARISON: CT lung screening [id number] 05/29/2023 1:35 PM FINDINGS: Lungs: Unremarkable. No consolidation. Pleural spaces: Unremarkable. No pleural effusion. No pneumothorax. Heart/Mediastinum: Unremarkable. No cardiomegaly. Bones/joints: Unremarkable. XR/XR chest 1V portable [id number] IMPRESSION: No acute findings.
--- NOTE | 2023-09-29 12:50 | PC.PHAR ---
pts daughters verified pts medications-pts daughters states anderson dced the pts hydralazine 50mg tid filled 07/10/23 90d/s and spironolactone 50mg bid filled 07/21/23 90d/s-pts daughters states the pts isosorbide mono er 120mg daily was decreased to 30mg qam-
[2023-09-29 13:03] LABS: Alanine Aminotransferase < 5 U/L (0-41); Albumin Level 3.5 g/dL (3.5-5.2); Alkaline Phosphatase 119 U/L (40-130); Anion Gap 14.3 (5-19); Aspartate Amino Transferase 17 U/L (0-40); Blood Urea Nitrogen 19 mg/dL (6-20); Calcium 9.3 mg/dL (8.5-10.5); Carbon Dioxide 29 mmol/L (22-29); Chloride 98 mmol/L (98-107); Glomerular Filtration Rate 39.2 mL/min (90-130); Glucose 114 mg/dL (65-115); Osmolality Calculated 289 mOsm/kg (285-295); Potassium 3.3 mmol/L (3.5-5.1); Sodium 138 mmol/L (136-145); Total Bilirubin 0.3 mg/dL (0.15-1.2); Total Protein 6.5 g/dL (6.6-8.7)
--- NOTE | 2023-09-29 14:30 | CT_ITS ---
WS: [id number] CT HEAD NONCONTRAST HISTORY: syncope TECHNIQUE: Contiguous axial imaging performed through the brain in 2.5 mm imaging. Bone and soft tiss ue windows. Sagittal and coronal reformats reviewed. All CT scans at [facility] use at least one of these dose optimization techniques: automated exposure control; mA and/or kV adjustment per pa tient size (includes targeted exams where dose is matched to clinical indication); or iterative recon struction. DLP: 1141.98 mGy.cm COMPARISON: None available. No acute intracranial hemorrhage, midline shift or mass effect. Mild atrophy. Moderate small vessel ischemic disease surrounding the ventricles. Greatest area of dec reased attenuation is around the occipital horns of the lateral ventricles. Prior lacunar infarct RIG HT thalamus. Ventricles: Normal size with no hydrocephalus. No inferior displacement the cerebellar tonsils. Paranasal sinuses: As visualized are clear. Mastoid air cells: Well pneumatized. Calvarium and scalp: Skull is intact with no soft tissue edema or swelling. IMPRESSION: 1. No acute intracranial hemorrhage or edema. 2. Very mild atrophy with moderate small vessel ischemic type changes in the white matter. 3. Prior RIGHT thalamic lacunar infarct.
[2023-09-29 16:01] VITALS: BP 137/85; PULSE 88; O2SAT 97
== END 2023-09-29 16:02 | disposition home or self-care (01) ==
PROVIDERS: Emergency Provider Emergency Medicine; PCP Physician Assistant
DX: R55 Syncope and collapse (principal); Z79.01 Long term (current) use of anticoagulants; Z72.0 Tobacco use; J44.9 Chronic obstructive pulmonary disease, unspecified; I12.9 Hypertensive chronic kidney disease with stage 1 through stage 4 chronic kidney disease, or unspecified chronic kidney disease; N18.9 Chronic kidney disease, unspecified; I25.10 Atherosclerotic heart disease of native coronary artery without angina pectoris
CPT/HCPCS: 70450; 71045; 80053; 85025; 93005; 99285; J7040

== ENCOUNTER 2023-10-20 14:43 | Outpatient (RCR) | payer MEDICARE, MEDICAID, SELFPAY | END 2023-10-25 23:59 | disposition home or self-care (01) | LOC: SPT 14:43 | PROVIDERS: PCP Physician Assistant; Visit Provider Specialist/Technologist Athletic Trainer | DX: Z47.89 Encounter for other orthopedic aftercare (principal) | CPT/HCPCS: 97110; 97161 ==

== ENCOUNTER 2023-10-26 06:00 | Outpatient (RCR) | payer MEDICARE, MEDICAID, SELFPAY | END 2023-11-25 23:59 | disposition home or self-care (01) | LOC: SPT 06:00 | PROVIDERS: PCP Physician Assistant; Visit Provider Specialist/Technologist Athletic Trainer | DX: Z47.89 Encounter for other orthopedic aftercare (principal) | CPT/HCPCS: 97110 ==

== ENCOUNTER 2023-11-26 06:00 | Outpatient (RCR) | payer MEDICARE, MEDICAID, SELFPAY | END 2023-12-24 23:59 | disposition home or self-care (01) | LOC: SPT 06:00 | PROVIDERS: PCP Physician Assistant; Visit Provider Specialist/Technologist Athletic Trainer | DX: Z96.641 Presence of right artificial hip joint (principal); M25.551 Pain in right hip; R26.89 Other abnormalities of gait and mobility | CPT/HCPCS: 97110 ==

== ENCOUNTER 2024-11-22 15:47 | Outpatient (CLI) | payer MEDICARE, MEDICAID, SELFPAY ==
--- NOTE | 2024-11-22 15:50 | CT_ITS ---
WS: [id number] LDCT LUNG CANCER SCREENING TECHNIQUE: Noncontrast CT of the chest with coronal and sagittal reformatted images. CLINICAL INFORMATION: NICOTINE DEPENDENCE COMPARISON: 05/29/2023 DLP: 50.40 mGy.cm DIvol: Mean CTDIvol: 0.90 (mGy) All CT scans at [facility] use at least one of these dose optimization techniques: automat ed exposure control; mA and/or kV adjustment per patient size (includes targeted exams where dose is matched to clinical indication); or iterative reconstruction. FINDINGS: Tiny nodules LEFT lower lobe peripherally unchanged. No new suspicious pulmonary parenchyma l abnormalities. Hyperinflation.Subsegmental atelectasis in the lung bases and lingula. Calcified gra nulomas in the lingula. Normal caliber thoracic aorta. No mediastinal or hilar lymphadenopathy. No axillary lymphadenopathy. Stable bilateral adrenal nodules likely adenomas. Mild thoracic kyphosis. Hypertrophic changes thorac ic spine. Partially visualized LEFT kidney cyst. Small cortical lesion LEFT kidney too small to characterize me asuring 8 mm. This could followed up with contrast-enhanced CT abdomen pelvis or ultrasound. CT/CT lung screening [id number] IMPRESSION: Small cortical lesion LEFT kidney partially visualized not definitely cystic an d too small to characterize measuring 8 mm. Recommend further evaluation with c ontrast-enhanced CT abdomen pelvis and/or ultrasound. LUNG-RADS: 2S-Benign Appearance or Behavior with Significant Findings FOLLOW UP: 12 Month: Continue annual screening with LDCT
== END 2024-11-22 15:48 | disposition home or self-care (01) ==
LOC: RAD 15:48
PROVIDERS: PCP Physician Assistant; Visit Provider Physician Assistant
DX: Z12.2 Encounter for screening for malignant neoplasm of respiratory organs (principal); F17.210 Nicotine dependence, cigarettes, uncomplicated; R91.8 Other nonspecific abnormal finding of lung field; J98.11 Atelectasis; J84.10 Pulmonary fibrosis, unspecified; M40.294 Other kyphosis, thoracic region; R93.7 Abnormal findings on diagnostic imaging of other parts of musculoskeletal system; N28.1 Cyst of kidney, acquired; R93.422 Abnormal radiologic findings on diagnostic imaging of left kidney
CPT/HCPCS: 71271